=== PATIENT | female | born 1985 | race Caucasian/White ===

== ENCOUNTER 2016-12-03 00:23 | Emergency (ER) | payer BC ==
[~2016-12-03] VITALS: Ht 165.1 cm; Wt 56.7 kg
[2016-12-03] MEDS ORDERED: SUCRALFATE1 GM ORAL (00:39)
[2016-12-03] MEDS ORDERED: TUMS200 M1 PO (00:39)
[2016-12-03] MEDS ORDERED: NEXIUM20 MG ORAL (00:39)
[2016-12-03] MEDS ORDERED: CARAFATE1 G1 ORAL (00:39)
[2016-12-03] MEDS ORDERED: TRILEPTAL600 MG PO (00:39)
[2016-12-03] MEDS ORDERED: LACTAID FAS9000 UNI1 PO (00:39)
[2016-12-03] MEDS ORDERED: PROTONIX40 MG ORAL (00:39)
[2016-12-03 01:01] LABS: APPEARANCE,URINE SLIGHTLY CLOUDY; KETONES,URINE 1+ (NEGATIVE); LEUKOCYTE ESTERASE ,URINE 2+ (NEGATIVE); NITRITE,URINE NEGATIVE (NEGATIVE); PH,URINE 6 (4.5-8.0); PROTEIN,URINE 2+ (NEGATIVE); UROBILINOGEN,URINE 4 MG/DL (0.0-1.0)
[2016-12-03 01:17] LABS: RBC,URINE 0-2 /HPF (0 - 2); SQUAMOUS EPITHELIAL CELL,UR MANY /LPF (NONE/OCC); WBC,URINE 15-20 /HPF (0 - 2)
[2016-12-03 01:18] LABS: BACTERIA,URINE MODERATE /HPF
[2016-12-03 01:23] VITALS: BP 109/76
[2016-12-03] MEDS ORDERED: cefTRIAXone 1 GM in NS 55 ML IVPB ONE (01:30)
[2016-12-03] MEDS ORDERED: Ketorolac 30mg Inj IV ONE (01:30)
[2016-12-03 01:48] LABS: BASOPHILS % (AUTO) 1.3 % (0.0-2.0); EOSINOPHILS % (AUTO) 1.8 % (0.0-3.0); LYMPHOCYTES % (AUTO) 28.3 % (20.0-45.0); MEAN CORPUSCULAR HEMOGLOBIN 24.2 PG (27.0-31.0); MEAN CORPUSCULAR HGB CONC 31.8 G/DL (32.0-36.0); MEAN CORPUSCULAR VOLUME 76 FL (80-99); MEAN PLATELET VOLUME 6.2 FL (6.5-10.1); MONOCYTES % (AUTO) 10.2 % (1.0-10.0); NEUTROPHILS % (AUTO) 58.4 % (45.0-75.0); PLATELET COUNT 335 K/UL (150-450); RED BLOOD COUNT 4.02 M/UL (4.20-5.40); RED CELL DISTRIBUTION WIDTH 14.9 % (11.6-14.8)
[2016-12-03 02:06] LABS: ALANINE AMINOTRANSFERASE 14 U/L (3-33); ALBUMIN/GLOBULIN RATIO 1.8 (1.0-2.7); ANION GAP 13 (5-15); ASPARTATE AMINO TRANSFERASE 21 U/L (5-40); CALCIUM 9.1 mg/dL (8.6-10.2); CARBON DIOXIDE 26 mEQ/L (20-30); CHLORIDE 102 mEQ/L (98-107); CREATININE 0.7 mg/dL (0.5-0.9); GLOMERULAR FILTRATION RATE > 60 mL/min (>60); HEMOLYSIS 1; POTASSIUM 4.1 mEQ/L (3.4-4.9); SODIUM 141 mEQ/L (135-145); TOTAL PROTEIN 6.2 g/dL (6.6-8.7)
[2016-12-03] MEDS ORDERED: CIPROFLOXACIN500 M2 ORAL (02:34)
--- NOTE | 2016-12-03 02:37 | Emergency Room Report ---
History of Present Illness General Chief Complaint: Abdominal Pain Source: Patient Present Illness HPI 30YOF BIBEMS from rehab for eating disorder with 2 days intermittent left sided abd pain radiating to left flank. No associated nausea/vomtiing, diarrhea, fever/chills. No blood in urine. No history of abd surgery or kidney stones. 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 When I talk to her or examine her, starts writhing on stretcher Head: normocephalic, atraumatic Eyes: bilateral eye EOMI, bilateral eye PERRL ENT: normal ENT inspection, hearing grossly normal, normal voice Neck: normal inspection, full range of motion, supple, no bony tend Respiratory: normal inspection, lungs clear, normal breath sounds, no respiratory distress, no retraction, no wheezing Cardiovascular #1: regular rate, rhythm, no edema Gastrointestinal: normal inspection, normal bowel sounds, soft, no guarding, no hernia, other - Left lateral abd ttp. Mild left CVAT Genitourinary: no CVA tenderness Musculoskeletal: normal inspection, back normal, normal range of motion, Nisha' s Sign negative Neurologic: normal inspection, alert, oriented x3, responsive, biophysics teacher III-XII nml as tested, motor strength/tone normal, speech normal Psychiatric: normal inspection, judgement/insight normal, mood/affect normal Skin: normal inspection, normal color, no rash Medical Decision Making Diagnostic Impression: Primary Impression: Pyelonephritis ER Course 30 YOF with clinical pyelo No leuks. Afebrile. UA grossly infected IV Abx given in ED with analgesia Patient slept throughout ED visit Tolerating PO Warrants outpatient Abx tx for ?pyelo vs cystitis PMD followup as needed DC home Last Vital Signs Date Time Temp Pulse Resp B/P Pulse Ox O2 Delivery O2 Flow Rate FiO2 12/03/16 01:23 97.9 78 19 109/76 97 Room Air Status: improved Disposition: HOME, SELF-CARE Condition: Improved Scripts Ciprofloxacin Hcl* (CIPROFLOXACIN HCL*) 500 Mg Tablet 500 MG ORAL Q12H for 7 Days, #14 TAB 0 Refills Prov: GENA HATHAWAY M.D. 12/03/16 Patient Instructions: Pyelonephritis, Adult, [id number] Additional Instructions: - Take ALL antibiotics until finished - Follow up with your primary care doctor in 2-3 days GENA HATHAWAY M.D. Dec 03, 2016 02:37
[2016-12-03 03:18] VITALS: BP 111/78
[2016-12-03 03:19] VITALS: BP 111/78
== END 2016-12-03 03:19 | disposition home or self-care (01) ==
LOC: EDBD 00:23 → EMR 01:00
DX: N12 Tubulo-interstitial nephritis, not specified as acute or chronic (principal); Z98.84 Bariatric surgery status
CPT/HCPCS: 36415; 80053; 81003; 81025; 85025; 87086; 96374; 96375; 99284; J0696; J1885